=== PATIENT | female | born 1995 | race African-American/Black ===

== ENCOUNTER 2020-01-20 21:16 | Emergency (ER) | payer MEDICAID ==
[~2020-01-20] VITALS: Ht 170.2 cm; Wt 59.0 kg
[2020-01-20 21:37] VITALS: BP 114/78
== END 2020-01-21 03:03 | disposition home or self-care (01) ==
LOC: ER 21:32
DX: N60.01 Solitary cyst of right breast (principal); R03.0 Elevated blood-pressure reading, without diagnosis of hypertension; J45.909 Unspecified asthma, uncomplicated
CPT/HCPCS: 76641; 81025; 99284